=== PATIENT | male | born 1960 | race African-American/Black ===

== ENCOUNTER 2017-07-24 06:24 | Day surgery (SDC) | payer OTHER, SELFPAY ==
[2017-07-21 16:33] VITALS: BP 113/74
[2017-07-21 16:38] LABS: BASOPHILS % (AUTO) 0.5 % (0.0-5.0); EOSINOPHILS % (AUTO) 1.8 % (0.0-8.0); HEMATOCRIT 41.1 % (42-54); LYMPHOCYTES % (AUTO) 32.1 % (21.0-51.0); MEAN CORPUSCULAR HGB CONC 34.1 g/dL (32.0-36.0); MEAN CORPUSCULAR VOLUME 87.8 fL (79-99); MONOCYTES % (AUTO) 10.1 % (3.0-13.0); NEUTROPHILS % (AUTO) 55.5 % (40.0-77.0); PLATELET COUNT (AUTO) 215 K/uL (130-400); RED BLOOD CELL COUNT(AUTO) 4.68 MIL/uL (4.50-6.20); RED CELL DISTRIBUTION WIDTH 14.1 % (11.0-15.5); WHITE BLOOD COUNT (AUTO) 5.3 K/uL (4.8-10.8)
[2017-07-21 16:47] LABS: CREATININE 1.4 mg/dL (0.5-1.5)
[~2017-07-24] VITALS: Ht 180.3 cm; Wt 93.4 kg
[2017-07-24] VITALS (17 sets, daily range): BP systolic 108–134; BP diastolic 72–89
[~2017-07-24 06:24] MED LIST: AMLO5TAB2 PO; BUPR150T8 PO; BUSP15TA3 PO; ROSU10TA35 PO
[2017-07-24] MEDS ORDERED: LACTATED RINGERS 1000ML 1,000 ML IV ONE (07:11)
[2017-07-24] MEDS: CEFAZOLIN SODIUM 1 GM VIAL IVP ONE ×2 (07:27→08:28)
[2017-07-24] MEDS ORDERED: LIDOCAINE PF 2% 5ML ABBOJECT ONE (07:57)
[2017-07-24] MEDS ORDERED: MIDAZOLAM HCL 1 MG/ML 2ML VIAL ONE (07:57)
[2017-07-24] MEDS ORDERED: ONDANSETRON HCL 4 MG/2 ML VIAL ONE (07:57)
[2017-07-24] MEDS ORDERED: GLYCOPYRROLATE 0.2 MG/ML 5 ML VIAL ONE (07:57)
[2017-07-24] MEDS ORDERED: DEXAMETHASONE SOD PHOSPHATE 10MG/ML 1ML VIAL ONE (07:57)
[2017-07-24] MEDS ORDERED: PROPOFOL 10 MG/ML 20ML VIAL IV ONE (07:57)
[2017-07-24] MEDS ORDERED: FENTANYL CITRATE PF 50 MCG/1 ML 2ML VIAL ONE ×2 (07:58→08:56)
[2017-07-24] MEDS ORDERED: WATER FOR INJECTION,STERILE 20 ML VIAL IJ ONE (08:00)
== END 2017-07-24 11:05 | disposition home or self-care (01) ==
LOC: DAH 06:24
PROVIDERS: ATTEND Orthopaedic Surgery
DX: M23.222 Derangement of posterior horn of medial meniscus due to old tear or injury, left knee (principal); M22.42 Chondromalacia patellae, left knee; G89.29 Other chronic pain; I10 Essential (primary) hypertension; E78.5 Hyperlipidemia, unspecified; F43.10 Post-traumatic stress disorder, unspecified; Z86.010 Personal history of colon polyps; M51.16 Intervertebral disc disorders with radiculopathy, lumbar region; N28.9 Disorder of kidney and ureter, unspecified; M54.12 Radiculopathy, cervical region; Z98.890 Other specified postprocedural states; Z79.899 Other long term (current) drug therapy
CPT/HCPCS: 29881; 36415; 80048; 85025; A4218; A4606; A4649 ×2; A4930; A6223; J0690; J1100; J2001; J2250; J2405; J2704; J3010 ×2; J3490; J7120

== ENCOUNTER → 2018-06-12 | Outpatient (CLI) | payer OTHER ==
[~2018-06-12] MED LIST changes: -AMLO5TAB2 PO; +AMLO5TAB9 PO; +ROSU10TA27 PO; -ROSU10TA35 PO
== END | disposition home or self-care (01) ==
LOC: SHCH 07:49
PROVIDERS: ATTEND Internal Medicine Cardiovascular Disease
DX: R00.2 Palpitations (principal)
CPT/HCPCS: 93306

== ENCOUNTER → 2024-03-11 | Outpatient (CLI) | payer OTHER ==
[~2024-03-11] MED LIST changes: +AMLO-257 PO; -AMLO5TAB9 PO; +BUPR-113 PO; -BUPR150T8 PO; -ROSU10TA27 PO; +ROSU10TA72 PO
== END | disposition home or self-care (01) ==
LOC: RAH 09:04
PROVIDERS: ATTEND Student in an Organized Health Care Education/Training Program
DX: M16.12 Unilateral primary osteoarthritis, left hip (principal); M70.62 Trochanteric bursitis, left hip; M70.32 Other bursitis of elbow, left elbow
CPT/HCPCS: 73721